=== PATIENT | female | born 1970 | race Hispanic/Latino ===

== ENCOUNTER 2022-10-14 21:29 | Emergency (ER) | payer OTHER ==
[~2022-10-14] VITALS: Ht 154.9 cm; Wt 85.7 kg
[2022-10-14 22:26] VITALS: BP 152/81
[2022-10-14] MEDS ORDERED: CLIN-141 PO (22:32)
== END 2022-10-14 22:45 | disposition home or self-care (01) ==
LOC: EDH 21:29
DX: L03.115 Cellulitis of right lower limb (principal); I10 Essential (primary) hypertension; E11.9 Type 2 diabetes mellitus without complications; Z90.49 Acquired absence of other specified parts of digestive tract